=== PATIENT | male | born 1940 | race Caucasian/White ===

== ENCOUNTER → 2019-09-18 | Outpatient (CLI) | payer MEDICARE, BC ==
--- NOTE | 2019-09-18 13:35 | Diagnostic Imaging Report ---
EXAM: US RENAL RETROPERITONEAL COMP DATE: 09/18/2019 1:13 PM INDICATION: Chronic kidney disease COMPARISON: None FINDINGS: The right kidney is normal in size measuring 10.9 x 5.4 x 5.6 cm with cortical thickness of 1.6 cm. Cortical echogenicity is within normal limits. There is a 4.3 x 3.6 x 4.0 cm cyst identified arising off the superior pole the right kidney. There is no evidence for solid renal mass, hydronephrosis, or shadowing calculi. Incidentally noted is a anechoic cyst within the central right hepatic lobe. The left kidney is normal in size measuring 8.8 x 4.2 x 4.9 cm with cortical thickness of 1.0 cm. Cortical echogenicity is within normal limits. There is no evidence for solid renal mass, hydronephrosis, or shadowing calcified. The urinary bladder demonstrates no significant abnormalities. Bilateral ureteral jets are noted. Prevoid volume is 148 cc. IMPRESSION: Right renal cyst. Otherwise, unremarkable sonographic appearance of the kidneys. Signed by: Dr. Jeffrey Rodriguez MD on 09/18/2019 1:31 PM
== END ==
LOC: US 12:40
PROVIDERS: ATTEND Urology
DX: N18.9 Chronic kidney disease, unspecified (principal)
CPT/HCPCS: 76770

== ENCOUNTER → 2021-09-22 | Outpatient (CLI) | payer MEDICARE, BC ==
[~2021-09-22] MED LIST: DIATRIZOATE MEGL/DIATRIZOA SOD 30 ML BTL PO ONE; IOPAMIDOL 370 MG/ML 100 ML INFUS..BTL INJ ONE; SODIUM CHLORIDE 0.9% 500ML 500 ML ONE
[2021-09-22 12:56] LABS: CREATININE, SERUM 1.3 mg/dL (0.72-1.25)
== END ==
LOC: CT 11:40
PROVIDERS: ATTEND Surgery
DX: K40.91 Unilateral inguinal hernia, without obstruction or gangrene, recurrent (principal)
CPT/HCPCS: 36415; 74177; 82565; 84520; 96360; J7040; Q9967

== ENCOUNTER → 2021-09-30 | Day surgery (SDC) | payer MEDICARE, BC ==
[2021-09-28 10:04] LABS: BASOPHILS % 0.4 % (0.0-1.0); EOSINOPHILS # (AUTO) 0.3 (0.0-0.4); EOSINOPHILS % 7.5 % (0.0-6.0); HEMOGLOBIN 13.1 g/dL (14.0-18.0); LYMPHOCYTES # (AUTO) 1.2 (1.0-3.2); LYMPHOCYTES % 27.1 % (18.0-39.1); MEAN CORPUSCULAR HEMOGLOBIN 32.8 pg (28-32); MEAN CORPUSCULAR VOLUME 102.8 fL (81-99); MONOCYTES # (AUTO) 0.6 (0.2-0.8); MONOCYTES % 12.6 % (4.4-11.3); NEUTROPHILS # (AUTO) 2.3 (2.1-6.9); NEUTROPHILS % 51.3 % (38.7-80.0); PLATELET COUNT 139 x10e3/uL (140-360); RED BLOOD COUNT 3.99 x10e6/uL (4.3-5.7); RED CELL DISTRIBUTION WIDTH 13.7 % (11.7-14.4)
[2021-09-28 10:14] LABS: ANION GAP 13.5 mmol/L (8-16); CALCIUM 9.5 mg/dL (8.4-10.2); CREATININE, SERUM 1.36 mg/dL (0.72-1.25); POTASSIUM 4.5 mmol/L (3.5-5.1)
[~2021-09-30] MED LIST changes: +B&O 60MG R/S 60 MG SUPP PR ONE; +CALCIUM ACETAT667 MG PO; +CELEBREX100 MG PO; +DEXAMETHASONE SOD PHOS INJ 4 MG/ML SDV ONE; -DIATRIZOATE MEGL/DIATRIZOA SOD 30 ML BTL PO ONE; +EPHEDRINE SULFATE INJ 50 MG/ML VIAL ONE; +FENTANYL CITRATE/PF 100MCG/2 ML INJ ONE; +FLOMAX0.4 MG PO; +FOLIC ACID0.4 MG PO; +GENTAMICIN 80MG/NS 100 ML 200 ML IV ONE; -IOPAMIDOL 370 MG/ML 100 ML INFUS..BTL INJ ONE; +IOPAMIDOL 610MG/1ML 300 MG/ML VIAL IV ONE; +LEVOTHYROXINE50 MCG PO; +LIDOCAINE HCL 2% LOCAL INJ 5 ML SDV VIAL INJ ONE; +METHOTREXATE2.5 MG PO; +ONDANSETRON HCL INJ 2MG/ML 2ML 2 MG/ML VIAL ONE; +PIPERACILLIN/TAZOBACTAM 3.375 GM VIAL ONE; +POVIDONE IODINE 0.05% 0.05 % ML PO ONE; +PROPOFOL IV EMULSION 10 MG/ML 20 ML VIAL ONE; +REMICADE; +SEVOFLURANE INHAL SOLN 250 ML PEN BTL ONE; -SODIUM CHLORIDE 0.9% 500ML 500 ML ONE; +VIT D3 PO; +ZYRTEC-D TABLE1 EACH PO
[2021-09-30 11:30] VITALS: BP 138/75
== END | disposition home or self-care (01) ==
LOC: OR 07:24
PROVIDERS: ATTEND Urology
DX: R97.20 Elevated prostate specific antigen [PSA] (principal); N41.1 Chronic prostatitis; N40.0 Benign prostatic hyperplasia without lower urinary tract symptoms; N18.9 Chronic kidney disease, unspecified; N32.89 Other specified disorders of bladder; R00.1 Bradycardia, unspecified; M19.90 Unspecified osteoarthritis, unspecified site; E07.9 Disorder of thyroid, unspecified; Z01.810 Encounter for preprocedural cardiovascular examination; Z01.812 Encounter for preprocedural laboratory examination; Z20.822 Contact with and (suspected) exposure to COVID-19; Z79.899 Other long term (current) drug therapy
CPT/HCPCS: 36415; 52005; 55700; 71046; 74420; 76872; 76998; 80048; 85025; 88305; 93005; C1758; J1100; J1580; J2001; J2405; J2543; J2704; J3010; Q9967; U0002

== ENCOUNTER → 2021-10-30 | Day surgery (SDC) | payer MEDICARE, BC ==
[2021-10-28 09:41] LABS: BASOPHILS % 0.6 % (0.0-1.0); EOSINOPHILS # (AUTO) 0.2 (0.0-0.4); EOSINOPHILS % 3.9 % (0.0-6.0); HEMATOCRIT 39.4 % (38.2-49.6); HEMOGLOBIN 12.7 g/dL (14.0-18.0); LYMPHOCYTES # (AUTO) 1.5 (1.0-3.2); LYMPHOCYTES % 28.5 % (18.0-39.1); MEAN CORPUSCULAR HEMOGLOBIN 32.6 pg (28-32); MEAN CORPUSCULAR HGB CONC 32.2 g/dL (31-35); MEAN CORPUSCULAR VOLUME 101.3 fL (81-99); MONOCYTES # (AUTO) 0.4 (0.2-0.8); MONOCYTES % 7.4 % (4.4-11.3); NEUTROPHILS # (AUTO) 3.1 (2.1-6.9); NEUTROPHILS % 59.2 % (38.7-80.0); PLATELET COUNT 147 x10e3/uL (140-360); RED BLOOD COUNT 3.89 x10e6/uL (4.3-5.7)
[2021-10-28 10:12] LABS: ALBUMIN 3.7 g/dL (3.5-5.0); ANION GAP 10.7 mmol/L (8-16); CALCIUM 9.3 mg/dL (8.4-10.2); CREATININE, SERUM 1.28 mg/dL (0.72-1.25); POTASSIUM 4.7 mmol/L (3.5-5.1)
[~2021-10-30] MED LIST changes: -B&O 60MG R/S 60 MG SUPP PR ONE; +BUPIVACAINE HC 0.75% PF 10ML VIAL INJ ONE; -EPHEDRINE SULFATE INJ 50 MG/ML VIAL ONE; -GENTAMICIN 80MG/NS 100 ML 200 ML IV ONE; -IOPAMIDOL 610MG/1ML 300 MG/ML VIAL IV ONE; +LIDOCAINE 1% W/EPINEPHRINE 20 ML VIAL ONE; -PIPERACILLIN/TAZOBACTAM 3.375 GM VIAL ONE; +PRAVASTATIN SOD20 MG PO
[2021-10-30 11:25] VITALS: BP 136/85
== END | disposition home or self-care (01) ==
LOC: OR 06:36
PROVIDERS: ATTEND Surgery
DX: K41.90 Unilateral femoral hernia, without obstruction or gangrene, not specified as recurrent (principal); I10 Essential (primary) hypertension; N40.0 Benign prostatic hyperplasia without lower urinary tract symptoms; E03.9 Hypothyroidism, unspecified; E78.5 Hyperlipidemia, unspecified; M06.9 Rheumatoid arthritis, unspecified; Z01.812 Encounter for preprocedural laboratory examination; Z79.899 Other long term (current) drug therapy
CPT/HCPCS: 0223U; 36415 ×2; 49550; 80053; 85025; C1781; J1100; J2001; J2405; J2704; J3010

== ENCOUNTER → 2022-01-14 | Day surgery (SDC) | payer MEDICARE, BC ==
[2022-01-12 15:02] LABS: BASOPHILS % 0.5 % (0.0-1.0); EOSINOPHILS # (AUTO) 0.3 (0.0-0.4); EOSINOPHILS % 5.4 % (0.0-6.0); HEMATOCRIT 40.4 % (38.2-49.6); HEMOGLOBIN 12.8 g/dL (14.0-18.0); LYMPHOCYTES # (AUTO) 1.6 (1.0-3.2); LYMPHOCYTES % 26.3 % (18.0-39.1); MEAN CORPUSCULAR HEMOGLOBIN 31.7 pg (28-32); MEAN CORPUSCULAR HGB CONC 31.7 g/dL (31-35); MONOCYTES # (AUTO) 0.6 (0.2-0.8); MONOCYTES % 10.1 % (4.4-11.3); NEUTROPHILS # (AUTO) 3.5 (2.1-6.9); NEUTROPHILS % 57.5 % (38.7-80.0); PLATELET COUNT 148 x10e3/uL (140-360); RED BLOOD COUNT 4.04 x10e6/uL (4.3-5.7); RED CELL DISTRIBUTION WIDTH 13.9 % (11.7-14.4)
[2022-01-12 15:10] LABS: INR 0.97; PROTHROMBIN TIME 13.8 seconds (11.9-14.5)
[2022-01-12 15:18] LABS: ALBUMIN/GLOBULIN RATIO 1.1 (0.8-2.0); ANION GAP 14.8 mmol/L (8-16); CALCIUM 9.3 mg/dL (8.4-10.2); CHOL/HDL RATIO 4.4 (3.9-4.7); CREATININE, SERUM 1.33 mg/dL (0.72-1.25); POTASSIUM 4.8 mmol/L (3.5-5.1)
[~2022-01-14] VITALS: Ht 172.7 cm; Wt 77.1 kg
[2022-01-14] VITALS (7 sets, daily range): BP systolic 97–124; BP diastolic 58–81
[~2022-01-14] MED LIST changes: -BUPIVACAINE HC 0.75% PF 10ML VIAL INJ ONE; +CELEBREX200 MG PO; -DEXAMETHASONE SOD PHOS INJ 4 MG/ML SDV ONE; +HEPARIN SOD/SOD CHLORIDE 2,000 ML ONE; +IOPAMIDOL 370 MG/ML 100 ML INFUS..BTL INJ ONE; -LIDOCAINE 1% W/EPINEPHRINE 20 ML VIAL ONE; +LIDOCAINE HCL 1% LOCAL INJ 20 ML VIAL ONE; +METOPROLOL SUCC50 MG PO; +MIDAZOLAM HCL 2 MG/2 ML VIAL ONE; -ONDANSETRON HCL INJ 2MG/ML 2ML 2 MG/ML VIAL ONE; -POVIDONE IODINE 0.05% 0.05 % ML PO ONE; +PRAVASTATIN SOD40 MG; +PREDNISONE5 MG PO; -PROPOFOL IV EMULSION 10 MG/ML 20 ML VIAL ONE; -SEVOFLURANE INHAL SOLN 250 ML PEN BTL ONE; +SODIUM CHLORIDE 0.9% 1000ML 1,000 ML ONE; +SYNTHROID100 MCG PO
== END | disposition home or self-care (01) ==
LOC: CATH LAB 08:47
PROVIDERS: ATTEND Internal Medicine Cardiovascular Disease
DX: I25.10 Atherosclerotic heart disease of native coronary artery without angina pectoris (principal); R94.39 Abnormal result of other cardiovascular function study; I49.1 Atrial premature depolarization; I87.2 Venous insufficiency (chronic) (peripheral); I49.3 Ventricular premature depolarization; E78.5 Hyperlipidemia, unspecified; E07.9 Disorder of thyroid, unspecified; Z01.812 Encounter for preprocedural laboratory examination; Z20.822 Contact with and (suspected) exposure to COVID-19; Z79.899 Other long term (current) drug therapy
CPT/HCPCS: 0223U; 36415; 76937; 80053; 80061; 85025; 85610; 93458; C1760; C1769; C1887; J2001 ×2; J2250; J3010; J7030; Q9967; 99152; 99153